=== PATIENT | female | born 2000 | race Caucasian/White ===

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

== ENCOUNTER 2021-02-22 10:54 | Emergency (ER) | payer OTHER ==
[~2021-02-22] VITALS: Ht 172.7 cm; Wt 81.8 kg
[~2021-02-22 10:54] MED LIST: ALAVERT10 M1 PO; AZASAN75 MG; COLACE 100100 MG/CAP PO; GLUCOPHAGE500 MG/TAB PO; LEXAPRO20 MG PO; PRIL40 PO; SINGULAIR 110 MG/TAB PO; SRONYX 0.02 MG-1 TAB; ZYLOPRIM 100MG100 MG PO
[2021-02-22] MEDS ORDERED: ZOFRAN ODT4 MG PO (12:36)
[2021-02-22 13:15] VITALS: BP 122/84; PULSE 93; TEMP 98.2
== END 2021-02-22 13:25 | disposition home or self-care (01) ==
LOC: COL.ER 10:54
DX: J10.1 Influenza due to other identified influenza virus with other respiratory manifestations (principal); J45.909 Unspecified asthma, uncomplicated; Z20.822 Contact with and (suspected) exposure to COVID-19; Z79.899 Other long term (current) drug therapy
CPT/HCPCS: J2405; J7030